=== PATIENT | male | born 1960 | race Caucasian/White ===

== ENCOUNTER 2017-10-08 14:40 | Inpatient (IN) | payer OTHER ==
[2017-10-08 16:14] LABS: ADD MAN DIFF? NO
[2017-10-08 16:16] LABS: ABNORMAL IP MESSAGE 1; BASOPHILS % 0.2 % (0.0-2.0); EOSINOPHILS % 0.2 % (0.0-7.0); HEMATOCRIT 41.8 % (42.0-52.0); LYMPHOCYTES # 1.3 10^3/ul (0.8-2.9); LYMPHOCYTES % 10.4 % (15.0-51.0); MEAN CORPUSCULAR HEMOGLOBIN 31.3 pg (29.0-33.0); MEAN CORPUSCULAR HGB CONC 33.5 g/dl (32.0-37.0); MEAN CORPUSCULAR VOLUME 93.5 fl (82.0-101.0); MEAN PLATELET VOLUME 10.3 fl (7.4-10.4); MONOCYTE # 1.9 10^3/ul (0.3-0.9); NEUTROPHIL # 9.4 10^3/ul (1.6-7.5); NEUTROPHILS % 73.8 % (39.0-77.0); PLATELET COUNT 233 10^3/UL (140-415); POSITIVE DIFF @See below; RED BLOOD COUNT 4.47 10^6/ul (4.70-6.10); RED CELL DISTRIBUTION WIDTH 13.4 % (11.5-14.5)
[2017-10-08 16:16] LABS: WHITE BLOOD COUNT 12.7 10^3/ul (4.8-10.8)
[2017-10-08 16:40] LABS: INR 0.92; PROTIME 12.4 Sec (11.9-14.9)
[2017-10-08 16:41] LABS: ALANINE AMINOTRANSFERASE 60 IU/L (13-69); ALBUMIN 4.6 g/dl (3.3-4.9); ALBUMIN/GLOBULIN RATIO 1.12; ALKALINE PHOSPHATASE 78 IU/L (42-121); ANION GAP 27 (8-16); ASPARTATE AMINO TRANSFERASE 79 IU/L (15-46); BLOOD UREA NITROGEN 76 mg/dl (7-20); CALCIUM 8.9 mg/dl (8.4-10.2); CARBON DIOXIDE 20 mmol/L (21-31); CHLORIDE 93 mmol/L (97-110); CREATININE 8.68 mg/dl (0.61-1.24); GLUCOSE 137 mg/dl (70-220); PARTIAL THROMBOPLASTIN TIME 32.1 Sec (25.0-35.0); POTASSIUM 5.2 mmol/L (3.5-5.1); SODIUM 135 mmol/L (135-144); TOTAL PROTEIN 8.7 g/dl (6.1-8.1)
[2017-10-08 16:52] LABS: TROPONIN-I 0.036 ng/ml (0.00-0.12)
[2017-10-08 16:56] LABS: LACTIC ACID 2.3 mmol/L (0.5-2.0)
[2017-10-08 17:07] LABS: ADD UMIC YES; UR ASCORBIC ACID NEGATIVE (NEGATIVE); UR BACTERIA FEW /HPF (NONE SEEN); UR BILIRUBIN (Dip) NEGATIVE (NEGATIVE); UR BLOOD (Dip) 2+ mg/dL (NEGATIVE); UR CLARITY CLEAR (CLEAR); UR COLOR YELLOW (YELLOW); UR GLUCOSE (Dip) 3+ mg/dL (NEGATIVE); UR KETONES (Dip) NEGATIVE (NEGATIVE); UR LEUKOCYTE ESTERASE (Dip) NEGATIVE Leu/ul (NEGATIVE); UR NITRITE (Dip) NEGATIVE (NEGATIVE); UR RBC 0 /HPF (0-5); UR SPECIFIC GRAVITY (Dip) 1.008 (1.003-1.030); UR TOTAL PROTEIN (Dip) 2+ mg/dl (NEGATIVE); UR UROBILINOGEN (Dip) NEGATIVE (NEGATIVE); UR WBC 0 /HPF (0-5)
[2017-10-08 19:20] LABS: LACTIC ACID 1.6 mmol/L (0.5-2.0)
[2017-10-08] MEDS: CEFEPIME 2GM/50 ML (PMX) 50 ML IVPB (20:03)
[2017-10-08] MEDS: SODIUM CHLORIDE 0.9% 1L BAG IV* (20:24)
[2017-10-08] MEDS ORDERED: ACETAMINOPHEN 325 MG TAB PO ×2 (20:30→21:00)
[2017-10-08] MEDS ORDERED: NACL 0.9% 3 ML SYG IV (21:00)
[2017-10-08] MEDS: ONDANSETRON 4 MG INJ IV (21:10)
[2017-10-08 21:47] LABS: AADO2 Arterial 28.4 mmHg (7.0-24.0); Allen Test ACCEPTAB; Arterial Base Excess -5.8 mmol/L (-3.0-3); Arterial Blood Gas Oxygen Sat 97.8 mmHG (95.0-98.0); Arterial COHb 0.1 % (0.0-3.0); Arterial Fraction of Oxyhgb 97.6 % (93.0-99.0); Arterial HCO3 18.4 mmol/L (22.0-26.0); Arterial MetHb 0.1 % (0.0-1.5); Arterial Total Hemglobin 13.4 g/dl (12.0-18.0); Arterial pCO2 32.1 mmhg (35-45); MODE NASAL CANNULA; Site Left Radial
[2017-10-08] MEDS: morphine 2 MG INJ IV (21:56)
[2017-10-08 22:12] LABS: LACTIC ACID 1.6 mmol/L (0.5-2.0); LIPASE 202 U/L (23-300)
[2017-10-08] MEDS ORDERED: VANCOMYCIN IV PER PHARMACY XX (23:00)
[2017-10-08] MEDS: VANCOMYCIN 1 GM (PMX) 250 ML IVPB (23:24)
[2017-10-09] MEDS: SODIUM BICARBONATE (IV ADD) 100 MEQ in DEXTROSE 5% 900 ML IV ×2 (01:00→12:23)
[2017-10-09] MEDS: INSULIN ASPART [NOVOLOG] 3 ML PEN SC ×8 (01:27→21:00)
[2017-10-09] MEDS: ACCU-CHEK XX (01:34)
[2017-10-09] MEDS: VANCOMYCIN 500MG/NS (PMX) 100 ML IVPB (01:35)
[2017-10-09] MEDS: SEVELAMER 800 MG TAB PO ×3 (08:00→17:20)
[2017-10-09] MEDS: CALCIUM ACETATE 667 MG CAP PO ×3 (08:00→17:20)
[2017-10-09 09:04] LABS: ADD MAN DIFF? NO
[2017-10-09] MEDS: CEFEPIME 1GM/50 ML (PMX) 50 ML IVPB (09:04)
[2017-10-09] MEDS: morphine 2 MG INJ IV (09:04)
[2017-10-09 09:08] LABS: WHITE BLOOD COUNT 9.3 10^3/ul (4.8-10.8)
[2017-10-09 09:08] LABS: BASOPHILS % 0.2 % (0.0-2.0); EOSINOPHILS # 0.1 10^3/ul (0.0-0.5); EOSINOPHILS % 0.8 % (0.0-7.0); HEMATOCRIT 38.7 % (42.0-52.0); HEMOGLOBIN 12.9 g/dl (14.0-18.0); LYMPHOCYTES # 1.9 10^3/ul (0.8-2.9); LYMPHOCYTES % 20.6 % (15.0-51.0); MEAN CORPUSCULAR HEMOGLOBIN 31.5 pg (29.0-33.0); MEAN CORPUSCULAR HGB CONC 33.3 g/dl (32.0-37.0); MEAN CORPUSCULAR VOLUME 94.6 fl (82.0-101.0); MEAN PLATELET VOLUME 10.4 fl (7.4-10.4); MONOCYTE # 1.2 10^3/ul (0.3-0.9); MONOCYTES % 12.4 % (0.0-11.0); NEUTROPHIL # 6.1 10^3/ul (1.6-7.5); NEUTROPHILS % 65.8 % (39.0-77.0); PLATELET COUNT 204 10^3/UL (140-415); RED BLOOD COUNT 4.09 10^6/ul (4.70-6.10); RED CELL DISTRIBUTION WIDTH 13.3 % (11.5-14.5)
[2017-10-09 09:28] LABS: HEMOGLOBIN A1C 7.1 % (0-5.9)
[2017-10-09] MEDS ORDERED: GLUCAGON 1 MG INJ IM (09:30)
[2017-10-09] MEDS ORDERED: GLUCOSE GEL 15 GRAM TUBE BUCCAL (09:30)
[2017-10-09] MEDS ORDERED: GLUCOSE GEL 15 GRAM TUBE PO ×2 (09:30)
[2017-10-09] MEDS ORDERED: DEXTROSE 50% 50 ML SYRINGE IV ×2 (09:30)
[2017-10-09 09:34] LABS: ALANINE AMINOTRANSFERASE 57 IU/L (13-69); ALBUMIN 3.9 g/dl (3.3-4.9); ALBUMIN/GLOBULIN RATIO 1.21; ALKALINE PHOSPHATASE 83 IU/L (42-121); ANION GAP 23 (8-16); ASPARTATE AMINO TRANSFERASE 50 IU/L (15-46); BLOOD UREA NITROGEN 83 mg/dl (7-20); CALCIUM 7.9 mg/dl (8.4-10.2); CARBON DIOXIDE 19 mmol/L (21-31); CHLORIDE 98 mmol/L (97-110); CHOL/HDL RATIO 3.9 RATIO; CHOLESTEROL 111 mg/dl (100-200); CREATININE 9.18 mg/dl (0.61-1.24); GLUCOSE 261 mg/dl (70-220); HDL CHOLESTEROL 28 mg/dl (28-71); LDL CHOLESTEROL,CALCULATED 34 mg/dl; POTASSIUM 4.8 mmol/L (3.5-5.1); SODIUM 135 mmol/L (135-144); TOTAL PROTEIN 7.1 g/dl (6.1-8.1); TRIGLYCERIDES 247 mg/dl (0-149)
[2017-10-09] MEDS: METOPROLOL 100 MG TAB PO ×2 (10:00→21:00)
[2017-10-09 10:27] LABS: THYROID STIMULATING HORMONE 0.801 MIU/L (0.465-4.680)
[2017-10-09] MEDS ORDERED: INSULIN LISPRO 10 UNIT SQ (13:00)
[2017-10-09] MEDS ORDERED: NON-FORMULARY/PATIENT OWN MED (Calcium Carbonate 500 MG) PO (13:00)
[2017-10-09] MEDS: ATORVASTATIN 40 MG TAB PO (21:18)
[2017-10-09] MEDS: INSULIN GLARGINE [LANtus] 3 ML PEN SC (21:20)
[2017-10-10] MEDS: ACCU-CHEK XX (02:00)
[2017-10-10] MEDS: morphine 2 MG INJ IV ×2 (02:28→11:14)
[2017-10-10 07:45] LABS: ADD MAN DIFF? NO
[2017-10-10 07:49] LABS: BASOPHILS % 0.3 % (0.0-2.0); EOSINOPHILS # 0.1 10^3/ul (0.0-0.5); HEMATOCRIT 37.8 % (42.0-52.0); HEMOGLOBIN 12.5 g/dl (14.0-18.0); LYMPHOCYTES # 1.7 10^3/ul (0.8-2.9); LYMPHOCYTES % 23.8 % (15.0-51.0); MEAN CORPUSCULAR HEMOGLOBIN 31.2 pg (29.0-33.0); MEAN CORPUSCULAR HGB CONC 33.1 g/dl (32.0-37.0); MEAN CORPUSCULAR VOLUME 94.3 fl (82.0-101.0); MEAN PLATELET VOLUME 10.1 fl (7.4-10.4); MONOCYTE # 1.1 10^3/ul (0.3-0.9); MONOCYTES % 16.2 % (0.0-11.0); NEUTROPHILS % 57.4 % (39.0-77.0); PLATELET COUNT 202 10^3/UL (140-415); RED BLOOD COUNT 4.01 10^6/ul (4.70-6.10); RED CELL DISTRIBUTION WIDTH 13.2 % (11.5-14.5)
[2017-10-10 08:02] LABS: ANION GAP 17 (8-16); BLOOD UREA NITROGEN 47 mg/dl (7-20); CALCIUM 8.4 mg/dl (8.4-10.2); CARBON DIOXIDE 27 mmol/L (21-31); CHLORIDE 99 mmol/L (97-110); CREATININE 6.15 mg/dl (0.61-1.24); GLUCOSE 307 mg/dl (70-220); POTASSIUM 4.9 mmol/L (3.5-5.1); SODIUM 138 mmol/L (135-144)
[2017-10-10] MEDS: METOPROLOL 100 MG TAB PO ×2 (08:20→20:03)
[2017-10-10] MEDS: CALCIUM ACETATE 667 MG CAP PO ×3 (08:21→17:16)
[2017-10-10] MEDS: SEVELAMER 800 MG TAB PO ×3 (08:21→17:16)
[2017-10-10] MEDS: INSULIN ASPART [NOVOLOG] 3 ML PEN SC ×7 (08:22→20:08)
[2017-10-10] MEDS: CEFEPIME 1GM/50 ML (PMX) 50 ML IVPB (08:24)
[2017-10-10] MEDS ORDERED: NON-FORMULARY/PATIENT OWN MED ([Nephro-Vite] 1 TAB) PO (09:00)
[2017-10-10] MEDS: ONDANSETRON 4 MG INJ IV ×2 (14:03→21:37)
[2017-10-10] MEDS: ATORVASTATIN 40 MG TAB PO (20:03)
[2017-10-10] MEDS: INSULIN GLARGINE [LANtus] 3 ML PEN SC (20:07)
[2017-10-11] MEDS: hydrALAzine 20 MG INJ IV ×2 (00:10→17:27)
[2017-10-11] MEDS: ACCU-CHEK XX (01:15)
[2017-10-11 07:02] LABS: VANCOMYCIN,RANDOM 11.5 ug/ml
[2017-10-11] MEDS: SEVELAMER 800 MG TAB PO ×3 (08:50→17:21)
[2017-10-11] MEDS: CALCIUM ACETATE 667 MG CAP PO ×3 (08:51→17:22)
[2017-10-11] MEDS: CEFEPIME 1GM/50 ML (PMX) 50 ML IVPB (08:51)
[2017-10-11] MEDS: INSULIN ASPART [NOVOLOG] 3 ML PEN SC ×7 (08:53→20:23)
[2017-10-11] MEDS: METOPROLOL 100 MG TAB PO ×2 (08:54→20:30)
[2017-10-11] MEDS: VANCOMYCIN 1 GM 250 ML IVPB (12:20)
[2017-10-11] MEDS: morphine 2 MG INJ IV (18:12)
[2017-10-11] MEDS: ONDANSETRON 4 MG INJ IV (18:16)
[2017-10-11] MEDS: INSULIN GLARGINE [LANtus] 3 ML PEN SC (20:29)
[2017-10-11] MEDS: ATORVASTATIN 40 MG TAB PO (20:30)
[2017-10-12] MEDS: ACCU-CHEK XX (01:48)
[2017-10-12] MEDS: INSULIN ASPART [NOVOLOG] 3 ML PEN SC ×5 (07:30→17:35)
[2017-10-12] MEDS: METOPROLOL 100 MG TAB PO (08:07)
[2017-10-12] MEDS: SEVELAMER 800 MG TAB PO ×2 (08:07→11:57)
[2017-10-12] MEDS: CALCIUM ACETATE 667 MG CAP PO ×2 (08:08→11:57)
[2017-10-12] MEDS: CEFEPIME 1GM/50 ML (PMX) 50 ML IVPB (08:08)
[2017-10-12] MEDS ORDERED: morphine LIQ (10 MG/5 ML) CUP PO (17:30)
[2017-10-12 19:54] LABS: HEPATITIS B SURFACE ANTIGEN NEGATIVE (NEGATIVE)
== END 2017-10-12 20:48 | disposition home or self-care (01) | DRG 871 ==
LOC: E/R 14:40 → MS4 20:04
PROC: 5A1D70Z Performance of Urinary Filtration, Intermittent, Less than 6 Hours Per Day (ICD-10-PCS; principal; 2017-10-09)
DX: A41.9 Sepsis, unspecified organism (principal); N18.6 End stage renal disease; E87.2 Acidosis; I12.0 Hypertensive chronic kidney disease with stage 5 chronic kidney disease or end stage renal disease; E11.21 Type 2 diabetes mellitus with diabetic nephropathy; E11.22 Type 2 diabetes mellitus with diabetic chronic kidney disease; A08.4 Viral intestinal infection, unspecified; R65.20 Severe sepsis without septic shock; D63.8 Anemia in other chronic diseases classified elsewhere; E87.70 Fluid overload, unspecified; E78.5 Hyperlipidemia, unspecified; Z99.2 Dependence on renal dialysis; Z79.4 Long term (current) use of insulin
CPT/HCPCS: 36415; 36600; 71045; 74176; 76700; 80048; 80053; 80061; 80202; 81001; 82803; 82962; 83036; 83605; 83690; 83735; 84443; 84484; 85025; 85610; 85730; 87040; 87081; 87086; 87340; 87400; 90935; 93005; 93306; 96365; 96366; 96375; 99291-25

== ENCOUNTER 2018-04-27 16:33 | Emergency (ER) | payer SELFPAY, OTHER | END 2018-04-27 19:38 | disposition left against medical advice (07) | LOC: FTE 16:33 | DX: Z53.21 Procedure and treatment not carried out due to patient leaving prior to being seen by health care provider (principal) ==